=== PATIENT | female | born 1965 | race Caucasian/White ===

== ENCOUNTER 2016-11-04 11:11 | Emergency (ER) | payer MEDICAID ==
[~2016-11-04] VITALS: Ht 162.6 cm; Wt 66.0 kg
[2016-11-04 11:12] VITALS: BP 138/76; PULSE 80; RESP 20; TEMP 97.7; O2SAT 98
[2016-11-04] MEDS ORDERED: METF500T PO (11:29)
--- NOTE | 2016-11-04 11:29 | PD ---
HPI Chief Complaint: Pain: Acute or Chronic Time Seen by Provider: 11:29 Travel History International Travel<30 days: No Contact w/Intl Traveler<30days: No Traveled to known affect area: No History of Present Illness HPI 51-year-old female presents the emergency department with left-sided anterior thoracic wall pain for the past 5 days. Patient states she fell while camping, but she has had progressively worsening left-sided chest pain, which is worse with movement and deep breath, as well as with palpation. Patient denies fever, chills, or cough. Patient denies shortness of breath, nausea, or vomiting. She is allergic to penicillin. [facility] Past Medical History Diabetes: Yes ?: Not LMP: 11/02/2016 Social History Alcohol Use: Yes Tobacco Use: No Substance Use: No Allergies-Medications (Allergen,Severity, Reaction): Coded Allergies: Penicillin (Verified Allergy, Severe, REDNESS, SWELLING, 11/04/16) Reported Meds & Prescriptions Reported Meds & Active Scripts Active Tramadol (Tramadol HCl) 50 Mg Tab 50 Mg PO Q6H PRN Orphenadrine CR (Orphenadrine Citrate) 100 Mg Tab 100 Mg PO Q12HR Ibuprofen 600 Mg Tab 600 Mg PO Q6H PRN Reported Metformin (Metformin HCl) 500 Mg Tab 500 Mg PO BIDPC With meals Physical Exam Narrative GENERAL: Patient appears uncomfortable in mild to moderate distress SKIN: Warm and dry. Normal color. Normal turgor. No signs of obvious trauma or ecchymosis. HEAD: Atraumatic. Normocephalic. EYES: Pupils equal and round. No scleral icterus. No injection or drainage. ENT: No nasal bleeding or discharge. Mucous membranes pink and moist. Pharynx is clear. No dental injury. NECK: Trachea midline. No bony tenderness or step-off. Neck is supple. CARDIOVASCULAR: Regular rate and rhythm. RESPIRATORY: No accessory muscle use. Clear to auscultation. Breath sounds equal bilaterally. MUSCULOSKELETAL: Patient examined with nursing pillow agent present. Extremities without clubbing, cyanosis, or edema. No obvious deformities. Thoracic wall is generally tender in the left anterior lateral aspect, without point tenderness, deformity, crepitus. NEUROLOGICAL: Awake and alert. No obvious cranial nerve deficits. Motor grossly within normal limits. Five out of 5 muscle strength in the arms and legs. Normal speech. PSYCHIATRIC: Appropriate mood and affect; insight and judgment normal. Data Data Last Documented VS Vital Signs Date Time Temp Pulse Resp B/P Pulse Ox O2 Delivery O2 Flow Rate FiO2 11/04/16 11:12 97.7 80 20 138/76 98 Orders Ribs, Uni (W/Exp Cxr-Min 3vw) (11/04/16 11:33) Morphine Inj (Morphine Inj) (11/04/16 11:45) Ondansetron Odt (Zofran Odt) (11/04/16 11:45) Electrocardiogram (11/04/16 ) MDM Medical Decision Making Medical Screen Exam Complete: Yes Emergency Medical Condition: Yes Differential Diagnosis Fall. Chest Wall contusion. Rib pain. Rib fracture. Narrative Course Patient is in pain but medically stable at time of exam. Rib x-rays are ordered for the left thorax as well as chest x-ray. EKG is ordered. EKG shows normal sinus rhythm. This is reviewed with Dr. Simmons. Patient is given 4 mg morphine IM as well as 4 mg Zofran by mouth. X-ray shows no acute process per radiologist. Patient be discharged home on ibuprofen 600 mg 4 times a day #40. Patient is also given Norflex 100 mg twice a day #10. Patient is also given tramadol 50 mg one every 6 hours when necessary pain #20. She is to follow with her primary care physician or return to emergency department as needed. Diagnosis Primary Impression: Contusion of left front wall of thorax Qualified Code: S20.212A - Contusion of left front wall of thorax, initial encounter Referrals: Primary Care Physician Patient Instructions: General Instructions Additional Instructions: X-ray shows no acute process per radiologist. Patient be discharged home on ibuprofen 600 mg 4 times a day #40. Patient is also given Norflex 100 mg twice a day #10. Patient is also given tramadol 50 mg one every 6 hours when necessary pain #20. She is to follow with her primary care physician or return to emergency department as needed. Med/Other Pt SpecificInfo: Prescription(s) given Scripts Tramadol 50 Mg Tab50 Mg PO Q6H PRN (PAIN) #20 TAB Prov:Godwin Simmons MD 11/04/16 Orphenadrine ER 12 HR (Orphenadrine CR)100 Mg [id number] Mg PO Q12HR #10 TAB Prov:Godwin Simmons MD 11/04/16 Ibuprofen 600 Mg [id number] Mg PO Q6H PRN (Pain/Inflammation) #40 TAB Prov:Godwin Simmons MD 11/04/16 Disposition: 01 DISCHARGE HOME Condition: Stable Tee Ramos Nov 04, 2016 11:29
[2016-11-04] MEDS ORDERED: ONDANSETRON ODT 4 MG TAB PO ONE (11:45)
[2016-11-04] MEDS ORDERED: MORPHINE SULFATE 4 MG/ML INJ IM ONE (11:45)
[2016-11-04] MEDS ORDERED: IBUP-232 PO (12:47)
[2016-11-04] MEDS ORDERED: TRAM50TA PO (12:47)
[2016-11-04] MEDS ORDERED: ORPH100T99 PO (12:47)
--- NOTE | 2016-11-04 12:53 | RADRPT ---
EXAM DATE/TIME: 11/04/2016 12:17 [place] COMPARISON: No previous studies available for comparison. INDICATIONS : Patient fell last week while she was camping. MEDICAL HISTORY : None. SURGICAL HISTORY : None. ENCOUNTER: Initial ACUITY: 2 days PAIN SCORE: 8/10 LOCATION: Left Ribs FINDINGS: Multiple views of the left ribs were performed. There is no evidence of displaced fracture. No dest ructive lesions or areas of periosteal thickening are seen. Expiratory view of the chest is negative for pneumothorax. The mediastinal structures are midline. CONCLUSION: No evidence of displaced rib fracture. Hypoaerated lungs with mild interstitial prominence. Derrick Shea MD on November 04, 2016 at 12:50 Board Certified Radiologist. This report was verified electronically.
--- NOTE | 2016-11-05 14:43 | EKG ---
Date Performed: 11/04/2016 Time Performed: 12:28:43 PTAGE: 51 years EKG: Sinus rhythm NORMAL ECG NO PREVIOUS TRACING DOCTOR: Randal Vasquez Interpretating Date/Time 11/05/2016 14:39:31
== END 2016-11-04 13:10 | disposition home or self-care (01) ==
LOC: NEPB 11:11
DX: S20.212A Contusion of left front wall of thorax, initial encounter (principal); E11.9 Type 2 diabetes mellitus without complications; W19.XXXA Unspecified fall, initial encounter; Y92.833 Campsite as the place of occurrence of the external cause; Y99.8 Other external cause status
CPT/HCPCS: 71101; 93005; 96372; 99283; J2270